=== PATIENT | female | born 2000 | race African-American/Black ===

== ENCOUNTER 2022-11-05 14:51 | Emergency (ER) | payer MEDICAID ==
[~2022-11-05] VITALS: Ht 180.3 cm; Wt 118.8 kg
[2022-11-05 15:03] VITALS: BP 109/45
--- NOTE | 2022-11-05 15:12 | NUR ---
PATIENT [facility] [employer]. PATIENT EXAMINED BY . PATIENT MEDICALLY CLEARED AND RELEASED IN CUSTODY IN STABLE CONDITION. ORIGINAL PRE-BOOK FORM GIVEN TO OFFICER SCARLETT 399.
--- NOTE | 2022-11-05 16:50 | NUR ---
The patient's care was reviewed and supervised by [place] 04 ED, RN.
== END 2022-11-05 15:12 ==
LOC: MED 14:51
DX: Q87.40 Marfan syndrome, unspecified; I42.9 Cardiomyopathy, unspecified
CPT/HCPCS: 99283